=== PATIENT | male | born 1960 | race Caucasian/White ===

== ENCOUNTER 2021-07-11 13:40 | Emergency (ER) | payer SELFPAY ==
[2021-07-11 13:41] VITALS: BP 122/80; PULSE 73; RESP 15; TEMP 36.4; O2SAT 95; BMI 20.3
--- NOTE | 2021-07-11 13:54 | RAD_ITS ---
HISTORY: injury. TECHNIQUE: XR Spine Lumbar 2 or 3 Views. COMPARISON: None. FINDINGS: VERTEBRAE: Vertebral body heights preserved. Posterior elements appear intact. ALIGNMENT: No significant anterior or posterior subluxation. INTERVERTEBRAL DISCS: Mild degenerative endplate change with intervertebral disc space narrowing at L2-3 and L5-S1. RAD/Lumbar Spine 2 or 3 Views IMPRESSION: No acute fracture or dislocation identified in the lumbar spine. Mild degenerative change. Electronically Signed: Mar Toure MD at 14:38 EDT ,
--- NOTE | 2021-07-11 13:54 | ED.VIS.BACK ---
HPI History of Present Illness Chief Complaint: Back Informant: patient Narrative Narrative: Presents worsening low back pain past 2 days. Started after lifting friend who is handicapped who fell down states 280 pounds. [place] pain directly his back. No radicular symptoms. No medicines taken awaken today with difficulty moving. She has had back issues years ago self-limiting. No images. He states he felt like his spine is more curved since he incident. Denies history of gastric ulcers or kidney injury. He is brought here by another friend. No medication allergies. Denies any direct falls denies any loss of bowel or bladder control. Prior similar symptoms: Yes PFSH PFSH Home Medications diazepam 5 mg PO Q8 PRN #12 tab 07/11/21 [Rx Last Taken Unknown] ibuprofen 600 mg PO 4X/DAY PRN #20 tab 07/11/21 [Rx Last Taken Unknown] Allergy/AdvReac Type Severity Reaction Status Date / Time bee venom protein (honey bee) Allergy Swelling Verified 07/11/21 13:41 coconut Allergy Swelling Verified 07/11/21 13:41 PEANUT BUTTER Allergy Swelling Uncoded 07/11/21 13:41 Social History Smoking Status: Current every day smoker tobacco type: cigarettes ROS ROS ED Constitutional Constitutional ED: Denies chills, fever(s) or sweats Eyes Eyes: Denies change in vision ENT ENT ED: Denies dysphagia or sore throat Cardiovascular Cardiovascular: Denies chest pain, leg edema, palpitations or racing heartbeat Respiratory/Chest Respiratory/Chest: Denies cough, dyspnea or dyspnea on exertion Gastrointestinal Gastrointestinal: Denies abdominal pain, diarrhea, nausea or vomiting Genitourinary Genitourinary ED: Denies dysuria, hematuria or urinary frequency Musculoskeletal Musculoskeletal: Reports back pain; Denies extremity pain or neck pain Integumentary Denies rash or wounds Neurologic Neurologic: Denies headache(s), paresthesias or weakness EXAM Physical Exam Const Vital Signs: 07/11/21 13:41 Temperature 97.6 F L Temperature Source Temporal Pulse Rate 73 Respiratory Rate 15 Blood Pressure 122/80 H Blood Pressure Mean 94 Pulse Ox 95 Oxygen Delivery Method Room Air Positive well nourished and well developed Constitutional Narrative: Sitting upright on the side of the bed. General Appearance ED: well developed and NAD HEENT Reports moist mucous membranes normocephalic and atraumatic Eyes PERRL, EOMs intact bilaterally and conjunctivae normal General Eye ED: Yes normal appearance of both eyes Neck no lymphadenopathy and supple General: Negative for tenderness Chest Wall Chest: Negative for tenderness Resp normal respiratory effort and normal air movement Effort and Inspection: symmetric chest movement; Negative for respiratory distress Cardio regular rate, regular rhythm and no murmurs Peripheral Pulses: pulses 2+ throughout GI normal to inspection, nondistended, normoactive bowel sounds and non-tender Palpation: Negative for guarding or rebound tenderness present Back/Spine no CVA tenderness Back/Spine Narrative: No midline thoracic or lumbar tenderness no step-offs. Reproducible paralumbar tenderness bilaterally. Straight leg test negative bilaterally. 2+ patellar reflex bilaterally. Extremity normal to inspection General Extremety ED: Negative for edema or tenderness General Extremity: Negative for edema Neuro oriented x3 and no sensory deficits noted Sensorium / Orientation: awake and alert Skin no rashes or lesions noted and no wounds MDM MDM MDM Narrative Medical decision making narrative: Patient with no cauda equina symptoms history exam concerns more acute lumbar strain possibly hernia without any impingement symptoms. He has not had images in the past we will obtain x-rays of his lumbar spine we will treat with NSAIDs and muscle relaxers. Plan on consistent surgical treatment with outpatient follow-up for further management. 3 view lumbar x-ray reviewed by myself read by radiology no fracture or dislocation there is mild degenerative changes noted. On reevaluation symptoms much more improved and tolerable. He will be continued on NSAIDs and muscle relaxers as needed. He is given follow-up as an outpatient for further management and treatment as needed. All questions were answered. Radiography Diagnostic Testing: Clinical Impression(s) from Imaging Studies Lumbar Spine X-Ray 07/11/21 13:54 IMPRESSION: No acute fracture or dislocation identified in the lumbar spine. Mild degenerative change. Electronically Signed: Mar Toure MD at 14:38 EDT , Discharge Plan Triage Chief Complaint: Back ED Provider: Royal Isaac Dx/Rx/DC Orders Clinical Impression: Acute lumbar myofascial strain, Acute back pain Instructions: ED Back Sprain/Strain Prescriptions: New ibuprofen 600 MG tablet 600 mg PO 4X/DAY PRN (Reason: Pain Or Fever) Qty: 20 RF: 0 diazepam [diazepam] 5 MG tablet 5 mg PO Q8 PRN (Reason: Muscle Spasm) Qty: 12 RF: 0 Primary Care Provider: Care Physician,No Primary Referrals: Christina Sultana [NON-STAFF] - 3-5 Days Care Physician,No Primary [Primary Care Provider] - Disposition Disposition: Home, Self Care Discharge Date/Time: 07/11/21 14:42
[2021-07-11] MEDS: diazePAM 5 MG Tablet PO (14:02)
[2021-07-11] MEDS: Ibuprofen 600 MG Tablet PO (14:02)
--- NOTE | 2021-07-11 15:20 | CM.ED ---
Social Work Note Reason for Referral: No PCP, No Insurance Melly SMITH met with pt and provided list of PCP and Self-Pay/Financial packet. Marcia Gil BUILDING CONSULTANT, MANAGER REGISTRATION
== END 2021-07-11 14:42 | disposition home or self-care (01) ==
PROVIDERS: Emergency Provider Emergency Medicine; Visit Provider Emergency Medicine
DX: S39.012A Strain of muscle, fascia and tendon of lower back, initial encounter (principal); F17.210 Nicotine dependence, cigarettes, uncomplicated; X50.0XXA Overexertion from strenuous movement or load, initial encounter
CPT/HCPCS: 72100; 99283

== ENCOUNTER 2022-11-27 16:31 | Emergency (ER) | payer OTHER, SELFPAY ==
[2022-11-27 16:32] VITALS: BP 152/94; PULSE 80; RESP 18; TEMP 35.9; O2SAT 93; BMI 22.4
[2022-11-27] MEDS: Ondansetron 4 MG/2 ML Vial IV (18:03)
[2022-11-27] MEDS: HYDROmorphone 1 MG/ML Syringe IV (18:03)
--- NOTE | 2022-11-27 18:03 | EX.ED.GENINJ ---
HPI History of Present Illness Chief Complaint: Fall Informant: patient Narrative Narrative: 62-year-old male sustained a mechanical fall at work today. He landed on his left lower ribs. He denies any hematuria. He is a smoker. No shortness of breath or significant change in cough. He states he feels popping when he breathes and moves. Denies any abdominal pain. He denies any other injuries. PFSH PFSH Home Medications diazepam 5 mg tablet 5 mg PO Q8 PRN Muscle Spasm #12 tabs 07/11/21 [Rx Last Taken Unknown] ibuprofen 600 mg tablet 600 mg PO 4X/DAY PRN Pain Or Fever #20 tabs 07/11/21 [Rx Last Taken Unknown] ondansetron 4 mg disintegrating tablet 4 mg PO Q8H PRN PRN Nausea #10 tabs 11/27/22 [Rx Last Taken Unknown] oxycodone-acetaminophen 5 mg-325 mg tablet 1 tab PO Q6H PRN PRN pain 5 days #20 TABLETS 11/27/22 [Rx Last Taken Unknown] Allergy/AdvReac Type Severity Reaction Status Date / Time bee venom protein (honey bee) Allergy Swelling Verified 11/27/22 16:34 coconut Allergy Swelling Verified 11/27/22 16:34 peanut Allergy Swelling Verified 11/27/22 16:34 Social History Smoking Status: Current every day smoker tobacco type: cigarettes ROS ROS ED Constitutional Constitutional ED: Denies chills, fever(s) or weight loss Eyes Eyes: Denies change in vision or diplopia ENT ENT ED: Denies ear pain, rhinorrhea or sore throat Cardiovascular Cardiovascular: Denies chest pain, orthopnea, palpitations or racing heartbeat Respiratory/Chest Respiratory/Chest: Denies cough, dyspnea or orthopnea Gastrointestinal Gastrointestinal: Denies abdominal pain, diarrhea, nausea or vomiting Genitourinary Genitourinary ED: Denies dysuria, hematuria or urinary frequency Musculoskeletal Musculoskeletal: Reports back pain; Denies arthralgias, myalgias or neck pain Integumentary Denies abscess or rash Neurologic Neurologic: Denies headache(s) or weakness Psychiatric Psychiatric: Denies anxiety, depression, suicidal ideation or suicidal thoughts Endocrine Endocrinology: Denies polydipsia, polyphagia or polyuria Allergic/Immunologic Allergic/Immunologic ED: Denies mouth swelling, tongue swelling or urticaria EXAM Physical Exam Const Vital Signs: 11/27/22 16:32 11/27/22 19:22 Temperature 96.6 F L Temperature Source Temporal Pulse Rate 80 60 Respiratory Rate 18 16 Blood Pressure 152/94 H 115/73 Blood Pressure Mean 113 87 Pulse Ox 93 95 Oxygen Delivery Method Room Air Room Air Positive well nourished and well developed General Appearance ED: well developed HEENT Reports normocephalic, head/scalp atraumatic and moist mucous membranes Eyes PERRL and EOMs intact bilaterally Neck no lymphadenopathy, supple and no JVD Chest Wall Chest Narrative: Left lower posterior ribs demonstrates tenderness to palpation. There are multiple clicks with inspiration and expiration. Resp clear to auscultation bilaterally Resp Narrative: Painful respiration Cardio regular rate, regular rhythm and no murmurs GI normal to inspection, nondistended, normoactive bowel sounds and non-tender Palpation: soft Back/Spine no CVA tenderness and normal ROM Back/Spine Narrative: No midline back pain Thoracic Spine / Upper Back: Negative for thoracic spinal tenderness Extremity normal to inspection General Extremety ED: Negative for edema General Extremity: Negative for edema Neuro oriented x3 and CN's II-XII intact bilaterally Sensorium / Orientation: alert Motor Exam: strength 5/5 throughout Psych mental status grossly normal Mood & Affect: Negative for depressed or tearful Skin no rashes or lesions noted and no wounds MDM MDM MDM Narrative Medical decision making narrative: Normal creatinine at 0.97. Glucose of 116. CT of the chest with IV contrast demonstrated no pneumothorax pleural effusion. There was fractures of the 11th and 12th rib on the left noted. Patient received a dose of Dilaudid and Zofran. He states he got very dizzy and sweaty with the administration of the pain medication. At this point no pulmonary contusion no renal injury noted. I write for pain medication would recommend follow-up in 1 to 2 weeks. He is asked to expect pain. Lab Data Attestation: I reviewed the patient's lab results. Labs: Laboratory Results - last 24 hr 11/27/22 18:00 Sodium 136 Potassium 3.8 Chloride 103 Carbon Dioxide 29.0 Anion Gap 4 L BUN 8 Creatinine 0.97 Estim Creat Clear Calc 74.30 Est GFR (MDRD) Af Amer 101 Est GFR (MDRD) Non-Af 83 BUN/Creatinine Ratio 8.2 L Glucose 116 H Calcium 9.4 Radiography Diagnostic Testing: Clinical Impression(s) from Imaging Studies Chest CT 11/27/22 18:34 IMPRESSION: Acute minimally displaced posterior left 11th and 12th rib fractures with associated soft tissue swelling and pleural thickening but no pneumothorax. No other demonstrated fractures No acute pulmonary process Electronically Signed: Crow Connor MD at 19:28 EDT Reading Location ID and State: [facility] / [place] , Service support , Discharge Plan Triage Chief Complaint: Fall ED Provider: Christiano Malave Dx/Rx/DC Orders Clinical Impression: Closed rib fracture Prescriptions: New oxycodone-acetaminophen [oxycodone-acetaminophen] 5-325 mg tablet 1 tab PO Q6H PRN PRN (Reason: pain) 5 Days Qty: 20 0RF ondansetron [ondansetron] 4 mg tablet,disintegrating 4 mg PO Q8H PRN PRN (Reason: Nausea) Qty: 10 0RF No Action ibuprofen 600 MG tablet 600 mg PO 4X/DAY PRN (Reason: Pain Or Fever) Qty: 20 0RF diazepam [diazepam] 5 MG tablet 5 mg PO Q8 PRN (Reason: Muscle Spasm) Qty: 12 0RF Primary Care Provider: Care Physician,No Primary Referrals: Ry Segovia MD [Med Staff - Clinical Lab Assistant] - 1-2 Weeks Care Physician,No Primary [Primary Care Provider] - Disposition Disposition: Home, Self Care
[2022-11-27 18:18] LABS: Anion Gap 4 (5-15); BUN 8 mg/dL (7-18); BUN/Creat Ratio 8.2 RATIO (10-20); Calcium,Total 9.4 mg/dL (8.5-10.1); Chloride 103 mmol/L (98-107); Creatinine, Serum 0.97 mg/dL (0.70-1.30); EST Glomerular Filtration Rate 83 mL/min (>60); Est Glom Filt Rate - Afr Amer 101 mL/min (>60); Glucose 116 mg/dL (74-106); Potassium 3.8 mmol/L (3.5-5.1); Sodium Level 136 mmol/L (136-145)
--- NOTE | 2022-11-27 18:34 | CT_ITS ---
INDICATION: Acute chest pain after trauma EXAMINATION: CT CHEST WITH CONTRAST - CT Chest W/ Contrast Injection TECHNIQUE: Helically acquired images were obtained of the chest following IV contrast. A radiation dose optimization technique was used for this scan. IV Contrast dosage and agent: COMPARISON: None. FINDINGS: Acute, minimally displaced posterior left 11th and 12th rib fractures without pneumothorax, there is some soft tissue swelling and the pleural thickening. LUNGS, PLEURA AND LARGE AIRWAYS: No masses, consolidation, or edema. No pleural effusion or thickening. No pneumothorax. THYROID: No thyroid lesions. HEART AND PERICARDIUM: Heart size is normal. No pericardial effusion. VESSELS: Thoracic aorta is not dilated. No aortic dissection. No obvious central pulmonary embolism although this study was not performed with the pulmonary embolism protocol. MEDIASTINUM AND ALEXANDRA: No mediastinal or hilar adenopathy. Esophagus is unremarkable. No hiatal hernia. UPPER ABDOMEN: No acute pathology. BONES: No demonstrated sternal, thoracic, or shoulder fracture. CT/Chest WITH Contrast IMPRESSION: Acute minimally displaced posterior left 11th and 12th rib fractures with associated soft tissue swelling and pleural thickening but no pneumothorax. No other demonstrated fractures No acute pulmonary process Electronically Signed: Crow Connor MD at 19:28 EDT ,
[2022-11-27 19:22] VITALS: BP 115/73; PULSE 60; RESP 16; O2SAT 95
[2022-11-27 20:23] VITALS: BP 115/73; PULSE 60; RESP 16; O2SAT 95
== END 2022-11-27 20:24 | disposition home or self-care (01) ==
PROVIDERS: Emergency Provider Emergency Medicine; Visit Provider Emergency Medicine
DX: S22.42XA Multiple fractures of ribs, left side, initial encounter for closed fracture (principal); F17.210 Nicotine dependence, cigarettes, uncomplicated; W19.XXXA Unspecified fall, initial encounter; Y99.0 Civilian activity done for income or pay; Y92.69 Other specified industrial and construction area as the place of occurrence of the external cause
CPT/HCPCS: 71260; 80048; 96374; 96375; 99282; Q9967; A4216; J2405